=== PATIENT | male | born 1955 | race Caucasian/White ===

== ENCOUNTER 2016-09-11 14:26 | Emergency (ER) | payer BC | END 2016-09-11 18:30 | disposition home or self-care (01) | LOC: ER1 14:26 | DX: H92.02 Otalgia, left ear (principal) | CPT/HCPCS: 70450; 96372; 99283; J1100 ==

== ENCOUNTER → 2020-05-13 | Outpatient (CLI) | payer MEDICARE ==
[~2020-05-13] MED LIST: BENADRYL 25MG C25 MG PO
== END ==
LOC: KOH-I 08:45
DX: M79.671 Pain in right foot (principal)
CPT/HCPCS: 73630